=== PATIENT | female | born 1970 | race Caucasian/White ===

== ENCOUNTER 2020-03-18 13:19 | Outpatient (CLI) | payer OTHER | END 2020-03-18 23:59 | disposition home or self-care (01) | LOC: LAB 13:19 | PROVIDERS: ATTEND Specialist | DX: Z01.812 Encounter for preprocedural laboratory examination (principal); Z20.828 Contact with and (suspected) exposure to other viral communicable diseases | CPT/HCPCS: 87426; C9803 ==

== ENCOUNTER 2020-03-25 06:31 | Day surgery (SDC) | payer OTHER ==
[~2020-03-25] VITALS: Ht 149.9 cm; Wt 88.5 kg
[2020-03-25 06:40] VITALS: BP 125/86
--- NOTE | 2020-03-25 06:42 | NUR ---
ms rn note received patient for day surgery. ambulated to unit with steady gait. brought in paperwork. a/ox4. tolerating room air. respirations are even and unlabored. no s/s sob noted. no c/o pain at this time. iv inserted in LAC#20 patent and saline locked. environmental services project manager obtained vital signs, bp 125/86 hr 72, rr 18, o2 sat 97%, temp 98. environmental services project manager also completed belongings list. skin intact. consent signed. surgery checklist completed. patient npo status since 03/24/20 1600. mrsa swab placed in fridge. endorse to day shift for admission documentation.
--- NOTE | 2020-03-25 07:30 | NUR ---
Received patient in bed for day surgery today will start at 0830. Pt signed consent, IV site on left AC 20g, reported by second shift supervisor. Pt denies pain or discomfort, in stable vital sign.
[2020-03-25 08:00] VITALS: BP 118/69
--- NOTE | 2020-03-25 09:30 | NUR ---
Patient left procedure in stable condition.
[2020-03-25 09:41] LABS: BASOPHILS # (AUTO) 0.1 /CMM (0.0-0.2); BASOPHILS % (AUTO) 1.6 % (0.0-2.0); EOSINOPHILS % (AUTO) 3.5 % (0.0-6.0); HEMATOCRIT 40 % (33-45); HEMOGLOBIN 13.3 g/dL (11.5-14.8); LYMPHOCYTES # (AUTO) 1.9 /CMM (0.8-4.8); LYMPHOCYTES % (AUTO) 33.9 % (20.0-44.0); MEAN CORPUSCULAR HGB CONC 33 g/dl (31.0-36.0); MEAN CORPUSCULAR VOLUME 90 fL (82-100); MONOCYTES # (AUTO) 0.4 /CMM (0.1-1.30); MONOCYTES % (AUTO) 7.2 % (2.0-12.0); NEUTROPHILS # (AUTO) 3.1 /CMM (1.8-8.9); NEUTROPHILS % (AUTO) 53.8 % (43.0-81.0); PLATELET COUNT (AUTO) 242 /CMM (150-450); RED BLOOD CELL COUNT(AUTO) 4.47 MIL/uL (4.0-5.2); WHITE BLOOD COUNT (AUTO) 5.7 K/uL (4.3-11.0)
[2020-03-25 10:00] LABS: ALBUMIN 3.5 g/dL (3.4-5.0); BILIRUBIN,TOTAL 1.2 mg/dL (0.2-1.0); CALCIUM, SERUM 9.2 mg/dL (8.5-10.1); CREATININE 0.6 mg/dL (0.6-1.3); POTASSIUM 3.7 mmol/L (3.5-5.1); TOTAL PROTEIN, SERUM 7.3 g/dL (6.4-8.2)
[2020-03-25] MEDS ORDERED: LIDOCAINE 1% INJ 50 ML MDV IJ ONE (10:06)
[2020-03-25] MEDS ORDERED: EPINEPHRINE (1:1000) 1 MG/ML AMPUL ONE (10:07)
[2020-03-25] MEDS ORDERED: methylPREDNISolone ACETATE 80 MG/ML VIAL ONE (10:07)
[2020-03-25] MEDS ORDERED: HYDROMORPHONE INJ 2 MG/ML DISP.SYRIN ONE (10:08)
[2020-03-25] MEDS ORDERED: ROCURONIUM BROMIDE 50 MG/5 ML ONE (10:08)
[2020-03-25 10:10] LABS: APPEARANCE,URINE SL CLOUDY (CLEAR); BILIRUBIN,URINE NEGATIVE (NEGATIVE); BLOOD, URINE NEGATIVE Ery/uL (NEGATIVE); COLOR,URINE YELLOW (YELLOW); KETONES,URINE NEGATIVE (NEGATIVE); LEUKOCYTE ESTERASE ,URINE NEGATIVE (NEGATIVE); NITRITE, URINE NEGATIVE (NEGATIVE); PROTEIN,URINE NEGATIVE (NEGATIVE); UGLUCOSE NEGATIVE (NEGATIVE); UROBILINOGEN,URINE 0.2 EU/dL (0.2)
[2020-03-25] MEDS ORDERED: MIDAZOLAM HCL 2 MG/2ML VIAL ONE (10:10)
--- NOTE | 2020-03-25 13:50 | NUR ---
Patient back from surgery, v/s: bp-121/91, p-78, t-98.2, r-20, O2sat 97% on room air. Given discharge instruction include f/u surgeon in 1 week, pt had discharge info at OR and pt mentioned has surgeon's number already. Staff escorted pt to private car, pt in stable condition.
--- NOTE | 2020-03-25 13:50 | NUR ---
Patient back from surgery, v/s: bp-121/91, p-78, t-98.2, r-20, O2sat 97% on room air. Given discharge instruction include f/u surgeon in 1 week. Pt ride on private car accompanied by staff in stable condition. Addendum: 03/25/20 at 1834 by MAR BLUM RN Error
[2020-03-25] MEDS ORDERED: HYDROCODONE/APAP 5/325MG TABLET PO PRN ×2 (14:30)
[2020-03-25 15:05] VITALS: BP 129/71
[2020-03-25 15:20] VITALS: BP 130/81
[2020-03-25 15:50] VITALS: BP 134/88
== END 2020-03-25 18:00 | disposition home or self-care (01) ==
LOC: DS 06:31 → UNDOADMIN 06:32 → MED 06:32 → UNDODISIN 14:00 → DS 18:00
PROVIDERS: ATTEND Specialist
DX: M75.41 Impingement syndrome of right shoulder (principal); E66.01 Morbid (severe) obesity due to excess calories; I10 Essential (primary) hypertension; Z79.899 Other long term (current) drug therapy
CPT/HCPCS: 29822; 36415; 71111; 80053; 81001; 82962; 84702; 84703; 85025; 85730; A4217; A4565 ×2; J0171; J1040; J1170; J2250; J3490; 81000-TC; 87081-TC; G0378

== ENCOUNTER 2022-09-07 13:42 | Outpatient (CLI) | payer OTHER | END 2022-09-07 23:59 | disposition home or self-care (01) | LOC: LAB 13:42 | PROVIDERS: ATTEND Specialist | DX: Z01.812 Encounter for preprocedural laboratory examination (principal); Z20.822 Contact with and (suspected) exposure to COVID-19 | CPT/HCPCS: U0003; C9803 ==

== ENCOUNTER 2022-09-14 05:19 | Day surgery (SDC) | payer OTHER ==
[2022-09-14] MEDS ORDERED: EPINEPHRINE (1:1000) 1 MG/ML AMPUL ONE (06:30)
[2022-09-14] MEDS ORDERED: BUPIVACAINE 0.25% 75 MG/30 ML VIAL ONE ×2 (06:30→06:35)
[2022-09-14] MEDS ORDERED: methylPREDNISolone ACETATE 80 MG/ML VIAL ONE (06:30)
[2022-09-14] MEDS ORDERED: FAMOTIDINE/PF INJ 20 MG/2 ML VIAL IV ONE (06:35)
[2022-09-14] MEDS ORDERED: SUCCINYLCHOLINE CHLORIDE 20 MG/ML VIAL ONE (06:35)
[2022-09-14] MEDS ORDERED: FENTANYL PF 100MCG/2ML AMPUL ONE (06:35)
--- NOTE | 2022-09-14 06:38 | NUR ---
Admission Notes Patient arrived at 0530. AOx4, able to make needs known. On RA and tolerating well. No SOB noted. No s/sx of respiratory distress noted. IV access in LAC #18G. Patient voided upon arrival. Per patient has been NPO since 1900 on 09/13. Safety precautions in place: bed in lowest, locked postion, siderails upX2, and brakes on. Table and call light within reach. All needs met at this time. Patient left for surgery via bed at 0620.
[2022-09-14] MEDS ORDERED: SCOPOLAMINE PATCH 1 MG/72HR TD ONE (06:41)
--- NOTE | 2022-09-14 07:25 | NUR ---
MS RN OPENING NOTE RECEIVED PT NOT IN THE ROOM. 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
[2022-09-14] MEDS ORDERED: HYDROMORPHONE 1 MG/1 ML DISP.SYRIN ONE (08:13)
--- NOTE | 2022-09-14 08:30 | NUR ---
RN NOTE PT BACK FROM SURGERY ACCOMPANIED BY OR NURSE, ISRA PERALES. PT IS A/O X4, ABLE TO MAKE NEEDS KNOWN. PT ON S/P RIGHT SHOULDER ARTHROSCOPY, SURGICAL SITE INTACT WITH NO ACTIVE BLEEDING NOTED AND DRESSING C/D/I WITH ICE PACK IN PLACE. SLING IN PLACE. PT DENIES PAIN OR DISCOMFORT AT THIS TIME. PT'S SPO2 ON ROOM AIR IS 90%. KEPT HOB ELEVATED AND ENCOURAGED PT TO DO DEEP BREATHING EXERCISES BUT SPO2 ONLY WENT UP TO 91%-92%. OXYGEN AT 2L/MIN VIA NASAL CANNULA WAS PLACED ON THE PT WITH SPO2 96%. NO SOB NOTED. NOT IN ANY SIGN OF RESPIRATORY DISTRESS. IV ACCESS ON LAC G#18 INTACT AND PATENT. VITAL SIGNS: BP 98/70, P 70, R 16, TEMP 97.9F. PER ISRA PERALES OR NURSE, ORDERED BY DR. LEWIS, PT IS OK TO START PT ON REGULAR DIET AND DISCHARGE PT WHEN STABLE. ORDERS CARRIED OUT. WILL CONTINUE TO MONITOR PT.
--- NOTE | 2022-09-14 08:45 | NUR ---
RN NOTE REASSESSED PT ON S/P RIGHT SHOULDER ARTHROSCOPY, SURGICAL SITE INTACT WITH NO ACTIVE BLEEDING NOTED AND DRESSING C/D/I WITH ICE PACK IN PLACE. SLING IN PLACE. VITAL SIGNS: BP 101/72, P 65, R 16, TEMP 97.2F, SPO2 IS 94% ON ROOM AIR. NO SOB NOTED.
--- NOTE | 2022-09-14 09:00 | NUR ---
RN NOTE REASSESSED PT ON S/P RIGHT SHOULDER ARTHROSCOPY, SURGICAL SITE INTACT WITH NO ACTIVE BLEEDING NOTED AND DRESSING C/D/I WITH ICE PACK IN PLACE. SLING IN PLACE. VITAL SIGNS: BP 99/72, P 61, R 18, TEMP 97.8F, SPO2 IS 96% ON ROOM AIR. NO SOB NOTED.
[2022-09-14] MEDS ORDERED: HYDROCODONE/APAP 5/325MG TABLET PO PRN ×2 (09:30)
--- NOTE | 2022-09-14 09:30 | NUR ---
RN NOTE REASSESSED PT ON S/P RIGHT SHOULDER ARTHROSCOPY, SURGICAL SITE INTACT WITH NO ACTIVE BLEEDING NOTED AND DRESSING C/D/I WITH ICE PACK IN PLACE. SLING IN PLACE. VITAL SIGNS: BP 108/77, P 69, R 18, TEMP 97.7F, SPO2 IS 96% ON ROOM AIR. NO SOB NOTED.
--- NOTE | 2022-09-14 10:30 | NUR ---
RN NOTE REASSESSED PT ON S/P RIGHT SHOULDER ARTHROSCOPY, SURGICAL SITE INTACT WITH NO ACTIVE BLEEDING NOTED AND DRESSING C/D/I WITH ICE PACK IN PLACE. SLING IN PLACE. VITAL SIGNS: BP 110/74, P 58, R 18, TEMP 97.9F, SPO2 IS 96% ON ROOM AIR. NO SOB NOTED.
--- NOTE | 2022-09-14 11:30 | NUR ---
RN NOTE REASSESSED PT ON S/P RIGHT SHOULDER ARTHROSCOPY, SURGICAL SITE INTACT WITH NO ACTIVE BLEEDING NOTED AND DRESSING C/D/I WITH ICE PACK IN PLACE. SLING IN PLACE. VITAL SIGNS: BP 119/72, P 60, R 18, TEMP 97.8F, SPO2 IS 97% ON ROOM AIR. NO SOB NOTED.
--- NOTE | 2022-09-14 12:30 | NUR ---
RN NOTE REASSESSED PT ON S/P RIGHT SHOULDER ARTHROSCOPY, SURGICAL SITE INTACT WITH NO ACTIVE BLEEDING NOTED AND DRESSING C/D/I WITH ICE PACK IN PLACE. SLING IN PLACE. VITAL SIGNS: BP 125/59, P 64, R 18, TEMP 97.8F, SPO2 IS 97% ON ROOM AIR. NO SOB NOTED.
--- NOTE | 2022-09-14 13:53 | NUR ---
[employer] SPECIALIST NOTE PT DISCHARGED TO HOME IN STABLE CONDITION. PT IS A/O X4, ABLE TO MAKE NEEDS KNOWN. PT IS ON ROOM AIR, TOLERATING WELL WITH SPO2 AT 98%. NO SOB NOTED. NOT IN ANY SIGN OF RESPIRATORY DISTRESS. VITAL SIGNS TAKEN, STABLE, AND RECORDED; BP 134/75, P 69, TEMP 97.1, R 18. PT'S SKIN INTACT WITH NO SKIN ISSUES.REASSESSED PT ON S/P RIGHT SHOULDER ARTHROSCOPY, SURGICAL SITE INTACT WITH NO ACTIVE BLEEDING NOTED AND DRESSING C/D/I WITH SLING IN PLACE. PT DENIES PAIN OR DISCOMFORT AT THIS TIME. EDUCATED PT THAT SHE MAY USE THE ICE PACK TO HELP WITH DISCOMFORT. ALL BELONGINGS ACCOUNTED FOR. DISCHARGED INSTRUCTIONS AND HEALTH TEACHINGS EXPLAINED TO THE PT AND PT VERBALIZED UNDERSTANDING. IV ACCESS ON LAC G#18 REMOVED AND NO ACTIVE BLEEDING NOTED. DRY PRESSURE DRESSING APPLIED AT THE SITE. WRISTBAND REMOVED. PT LEFT THE UNIT AT 1345 VIA WHEELCHAIR ACCOMPANIED BY MAURICE REILLY. PT WAS PICKED UP BY SISTER VIA PRIVATE CAR. MD AND CHARGED NURSE AWARE OF DISCHARGED.
== END 2022-09-14 19:00 | disposition home or self-care (01) ==
LOC: DS 05:19 → UNDOADMIN 05:20 → MED 05:20 → UNDODISIN 13:56 → DS 19:00
PROVIDERS: ATTEND Specialist
DX: M75.41 Impingement syndrome of right shoulder (principal); Z20.822 Contact with and (suspected) exposure to COVID-19; I10 Essential (primary) hypertension; E03.9 Hypothyroidism, unspecified; Z85.850 Personal history of malignant neoplasm of thyroid; Z98.890 Other specified postprocedural states; Z79.899 Other long term (current) drug therapy
CPT/HCPCS: 29823; 29824; 84703; 87081; J0690; J1040; J1100; J2704; J0171; J3010; J3490 ×4; J2370; J0330; J2405; A4217; A4565; J1170; G0378